=== PATIENT | male | born 1950 | race Caucasian/White ===

== ENCOUNTER → 2019-05-24 | Outpatient (CLI) | payer MEDICARE ==
--- NOTE | 2019-05-24 08:46 | MR ---
EXAMINATION TYPE: MR shoulder LT wo con DATE OF EXAM: 05/24/2019 COMPARISON: None HISTORY: Left shoulder pain TECHNIQUE: Multiplanar, multisequence imaging of the left shoulder is performed without contrast. FINDINGS: The bicipital tendon is well situated the bicipital groove however there is increased fluid surrounding the tendon compatible with tendinosis. There is narrowing of the acromioclavicular joint with hypertrophic spurring and there is also narrow ing of the glenohumeral joint. Grossly the inferior glenohumeral ligament appears intact. Small amoun t fluid is seen in the glenohumeral joint. There is fluid in the subacromial subdeltoid bursa. Mass effect from the hypertrophic change of the A C joint upon the supraspinatus tendon and muscle. There is diffuse tendinopathy of the distal suprasp inatus tendon with suspected tear involving the anterior fibers measuring approximately 1.1 x 0.9 cm compatible with a through thickness partial tear. At the insertion there appears to be ill-definition of the anterior fibers of the infraspinatus tendo n compatible with tendinopathy. Bony labrum grossly intact by non arthrogram technique. No marrow edema or contusion. IMPRESSION: 1. There is diffuse tendinopathy of the supraspinatus tendon. There is a 1.1 x 0.9 cm through thickne ss partial tear anterior fibers supraspinatus tendon with no retraction. 2. Tendinosis and partial intrasubstance tear insertion anterior fibers infraspinatus tendon. 3. Bicipital tendinosis. Intracapsular portion of the tendon demonstrates increased internal signal. Split tear within the differential diagnosis. 4. AC joint and glenohumeral arthropathy with impingement of the supraspinatus tendon and muscle. 5. Small glenohumeral joint effusion with glenohumeral joint arthropathy.
== END | disposition home or self-care (01) ==
LOC: RADMRIMAIN 07:33
PROVIDERS: ATTEND Orthopaedic Surgery
DX: M75.102 Unspecified rotator cuff tear or rupture of left shoulder, not specified as traumatic (principal); M19.012 Primary osteoarthritis, left shoulder

== ENCOUNTER → 2019-06-04 | Outpatient (CLI) | payer MEDICARE ==
[2019-06-04 10:01] LABS: Basophils # (A) 0.1 k/uL (0-0.2); Basophils % (A) 1 %; Eosinophils # (A) 0.3 k/uL (0-0.7); Eosinophils % (A) 5 %; HCT 47.5 % (39.0-53.0); HGB 15.8 gm/dL (13.0-17.5); Lymphocytes # (A) 1.6 k/uL (1.0-4.8); Lymphocytes % (A) 27 %; MCH 31.1 pg (25.0-35.0); MCHC 33.3 g/dL (31.0-37.0); MCV 93.4 fL (80.0-100.0); Mean Platelet Volume 7.5; Monocytes # (A) 0.5 k/uL (0-1.0); Monocytes % (A) 9 %; Neutrophils # (A) 3.3 k/uL (1.3-7.7); Neutrophils % (A) 55 %; Platelet Count 237 k/uL (150-450); RBC 5.08 m/uL (4.30-5.90); RDW 12.9 % (11.5-15.5); WBC 5.9 k/uL (3.8-10.6)
[2019-06-04 10:31] LABS: Potassium 4.5 mmol/L (3.5-5.1)
== END | disposition home or self-care (01) ==
LOC: LABPAT 09:23
PROVIDERS: ATTEND Orthopaedic Surgery
DX: Z01.812 Encounter for preprocedural laboratory examination (principal); Z01.818 Encounter for other preprocedural examination; M75.42 Impingement syndrome of left shoulder
CPT/HCPCS: 80051; 85025; 93005

== ENCOUNTER 2019-06-10 07:43 | Day surgery (SDC) | payer MEDICARE ==
[2019-06-09 09:54] VITALS: BMI 32.5
--- NOTE | 2019-06-09 13:42 | HP ---
HISTORY AND PHYSICAL DATE OF SURGERY: 06/10/2019 Olayinka Guadalupe is a 69-year-old patient seen with progressive left shoulder pain. We discussed treatment options. He elected to proceed with arthroscopy. Consent regarding the procedure was obtained. PAST MEDICAL HISTORY: Hypertension, hyperlipidemia. PAST SURGICAL HISTORY: None. DAILY MEDICATIONS: 1. Losartan potassium. 2. Pravastatin. ALLERGIES: None. SOCIAL HISTORY: He denies current tobacco use. PHYSICAL EXAMINATION: Physical evaluation of left shoulder: Flexion 140 degrees, abduction 120 degrees, external rotation is 25 degrees with pain and weakness. There is tenderness along the anterolateral acromion rotator cuff insertion. Impingement is positive at 30 degrees. Drop-arm sign is positive. Distal neurovascular exam is intact. Radiographs of the left shoulder revealed an acromioclavicular joint osteoarthritis and a type 2 anterior acromion. An MRI of the left shoulder revealed rotator cuff tear partial biceps tendon tear and osteoarthritic changes. IMPRESSION: 1. Left shoulder impingement with rotator cuff tear. 2. Left shoulder partial biceps tendon tear. 3. Left shoulder osteoarthritis. 4. Hypertension. 5. Hyperlipidemia. PLAN: Left shoulder arthroscopy with subacromial decompression, possible arthroscopic rotator cuff repair, probable biceps tenotomy, possible Marisela procedure and debridement. MMODL / IJN: [id number] /
[~2019-06-10 07:43] MED LIST: DEXAMETHASONE SOD PHOSPHATE 10 MG/ML 1 ML VIAL IV ONE; HYDROmorphone 0.5 MG/0.5 ML SYRINGE IVP PRN; LACTATED RINGERS 1,000 ML IV SCH; MIDAZOLAM 2 MG/2 ML VIAL IV PRN; ONDANSETRON 4 MG/2 ML VIAL IVP ONE
[2019-06-10] MEDS ORDERED: LIDOCAINE 1% 20 ML VIAL (10MG/ML) FOR IV START INTRADERMA ONE (08:20)
[2019-06-10] MEDS ORDERED: LIDOCAINE 1% INJ 10MG/ML (20 ML MDV) ONE (09:09)
[2019-06-10] MEDS ORDERED: ROPIVACAINE 5 MG/ML 30 ML VIAL ONE (09:09)
[2019-06-10] MEDS ORDERED: DEXAMETHASONE SOD PHOSPHATE 4 MG/ML 1 ML VIAL ONE (09:09)
[2019-06-10] MEDS ORDERED: MIDAZOLAM 2 MG/2 ML VIAL ONE (09:09)
[2019-06-10] MEDS ORDERED: ePHEDrine SULFATE/0.9% NACL/PF 50 MG/5 ML SYRINGE IV ONE (09:09)
[2019-06-10] MEDS ORDERED: PROPOFOL 10 MG/ML 20 ML VIAL IV ONE (09:09)
[2019-06-10] MEDS ORDERED: SUCCINYLCHOLINE CHLORIDE 100 MG/5 ML SYR IV ONE (09:09)
[2019-06-10] MEDS ORDERED: PHENYLEPHRINE-0.9% NACL SYG 1 MG/10 ML SYRINGE ONE (09:09)
[2019-06-10] MEDS ORDERED: fentaNYL (PF) 50 MCG/ML 2 ML AMP ONE (09:09)
[2019-06-10 11:44] VITALS: TEMP 97.5
--- NOTE | 2019-06-10 11:45 | P.OP ---
Date of Procedure: 06/10/19 Preoperative Diagnosis: Left shoulder impingement Postoperative Diagnosis: 1. Left shoulder rotator cuff tear 2. Left shoulder impingement 3. Left shoulder acromioclavicular joint osteoarthritis 4. Left shoulder partial long head biceps tendon tear 5. Left shoulder labral tear Procedure(s) Performed: 1. Left shoulder arthroscopic rotator cuff repair 2. Left shoulder arthroscopic subacromial decompression 3. Left shoulder arthroscopic Marisela procedure 4. Left shoulder arthroscopic biceps tenotomy 5. Left shoulder arthroscopic debridement labral tear Implants: 5Arthrex swivel lock anchors Anesthesia: GETA, regional (Interscalene block) Surgeon: Alvin Magaña Shipping [employer] Receiving Material Handler #1: Miguel Winn Estimated Blood Loss (ml): 12 Pathology: none sent Condition: stable Disposition: PACU Indications for Procedure: 69-year-old patient seen with progressive left shoulder pain. After treatment options were discussed, he elected to proceed with arthroscopy. Operative Findings: See description of procedure Description of Procedure: Patient underwent an interscalene block by department of anesthesia for postoperative pain management. The patient was then taken to the operative suite. The patient underwent a general anesthetic by the department of anesthesia. The patient was placed into a lateral position and secured. There was appropriate padding of the bony prominence. Left shoulder was then prepped and draped in normal sterile orthopedic fashion. We placed the extremity in 10 pounds of longitudinal traction. A posterior incision was now made for a posterior working portal site. The trocar and cannula were inserted into the glenohumeral joint. Arthroscopy was initiated. Spinal needle was now inserted anteriorly, to ascertain the anterior working portal site. An incision was now made in that area, a trocar was inserted followed by a probe. There was superficial tearing of the superior labrum. There was significant partial tearing long head biceps tendon. There was a large rotator cuff tear visualized from the glenohumeral joint. There were grade 1/2 chondromalacia changes of the humeral head. No osteochondral tears were present. I performed an arthroscopic biceps tenotomy. I debrided that superficial labral tear down to stable tissue. The residual labrum was stable. Instruments now removed from glenohumeral joint. Utilizing the posterior working portal site, the trocar and cannula were inserted into the subacromial space. Arthroscopy initiated. I made an incision 2 fingerbreadths lateral to the acromion. I introduced my trocar followed by my ArthroCare ablator. I now began ablating thick subacromial bursal tissue, which exposed the undersurface of the anterior acromion. There was diminished subacromial space. There was a very prominent anterior acromion. A motorized bur was introduced and a subacromial decompression was performed. I also excised some osteophytes off the inferior aspect of the distal clavicle. The AC joint was visualized and noted to be fairly arthritic. The motorized bur was introduced in the anterior portal site and a Marisela procedure was performed without difficulty, decompressing the AC joint nicely. I turned my attention to the rotator cuff. There was a 3 cm rotator cuff tear. It was freely mobile over the footprint. I debrided the margins getting down to stable tendon tissue. I introduced my motorized bur and abraded the footprint area, getting some petechial bleeding. I now made an accessory portal site off the lateral aspect of the acromion. I punched 2 holes medial for medial row fixation with the assistance of Darian FERREIRA carefully tapping the punch with a mallet as I held the punch and the camera. I now introduced both anchors into the pre-punched holes and Darian FERREIRA tapped them with the mallet as I held anchors and the camera. Darian FERREIRA now screwed the anchors in place a while I held the anchor guide and camera. All 8 limbs of suture were now passed through good bites of rotator cuff tendon. I noted a few areas where there went of the redundant tissue/dogears. I passed 4 sutures links to address that. 2 of them were centrally. I now punched 2 holes for lateral row fixation again I held the punch and camera while Darian FERREIRA used a mallet to tap in the punch. We now passed sutures to include one suture link each through both anchors and individually I introduced the anchors into the pre-punch holes I held the anchor guide in position with one hand holding the camera with the other hand while Darian FERREIRA tensioned the sutures and screwed in the anchors one at a time. All residual suture limbs were now clipped. I now punched one hole is totally to address the central dogear I had passed 2 sutures links through. I i ntroduced one additional anchor compressing the central area nicely. The suture limbs were cut. We had good compression of the tendon along the entire footprint. I injected 1 mL Renyte intra-articular. Instruments now removed from the portal sites. All portal sites were approximated with nylon suture. Sterile dressings were applied followed by a shoulder immobilizer. Miguel FERREIRA assisted in this complex case. The patient was awakened, transferred to a bed, and taken to recovery in stable condition.
[2019-06-10] MEDS ORDERED: LACTATED RINGERS 1,000 ML IV ONE ×2 (12:56)
[2019-06-10 12:59] VITALS: RESP 18
[2019-06-10 13:23] VITALS: BP 125/75; PULSE 73
--- NOTE | 2019-06-11 08:41 | P.ANPRN ---
Procedure Note - Anesthesia - Nerve Block Performed Left Interscalene Single Time Out Performed: Yes Date of Procedure: 06/10/19 Procedure Start Time: Procedure Stop Time: Location of Patient Procedure: PreOp Indication: Acute Post-Operative Pain, Requested by physician Sedation Type: Sedate with meaningful contact maintained Preparation: Sterile Prep Position: Supine Needle Types: Pajunk Needle Gauge: 21 Technique: Ultrasound (Ropivacaine 0.5%30 mL plus dexamethasone 4 mg) Blood Aspirated: No Pain Paresthesia on Injection Noted: No Resistance on Injection: Normal Events: Uneventful and Well Tolerated
== END 2019-06-10 13:54 | disposition home or self-care (01) ==
LOC: OR 07:43
PROVIDERS: ATTEND Orthopaedic Surgery
DX: M75.102 Unspecified rotator cuff tear or rupture of left shoulder, not specified as traumatic (principal); M25.812 Other specified joint disorders, left shoulder; M19.012 Primary osteoarthritis, left shoulder; S46.112A Strain of muscle, fascia and tendon of long head of biceps, left arm, initial encounter; S43.492A Other sprain of left shoulder joint, initial encounter; X58.XXXA Exposure to other specified factors, initial encounter; M25.712 Osteophyte, left shoulder; I10 Essential (primary) hypertension; E78.5 Hyperlipidemia, unspecified; Z79.82 Long term (current) use of aspirin; Z79.899 Other long term (current) drug therapy
CPT/HCPCS: 29827; 29826; 29824; 64415; C1713 ×4; C1765; J2250; J1100 ×2; J0690; J2405; J2001; J3010; J2795; J2370; J0330; J2704

== ENCOUNTER → 2023-05-20 | Outpatient (CLI) | payer MEDICARE ==
--- NOTE | 2023-05-21 08:02 | US ---
EXAMINATION TYPE: US thyroid st tissue head/neck DATE OF EXAM: 05/20/2023 COMPARISON: NONE CLINICAL INDICATION: Male, 73 years old with history of E04.1 NONTOXIC SINGLE THYROID NODULE; Thyroid nodule. GLAND SIZE: Right Lobe: 6.7 x 2.5 x 2.2 cm Overall Parenchyma: Very heterogeneous Left Lobe: 6.8 x 2.0 x 2.2 cm Overall Parenchyma: Very heterogeneous Isthmus Thickness: 0.31 cm NODULES RIGHT: # of nodules measured on right: 2 1. 2.0 X 1.5 x 1.5 cm, upper mid, Prior size: No prior TIRADS Score: 3 TIRADS Category 3: Mildly Suspicious Composition: Mixed cystic and solid (1 point). Echogenicity: Hypoechoic (2 points). Shape: Wider than tall (0 points). Margin: Smooth (0 points). Echogenic foci: None or large comet-tail artifacts (0 points) Recommendation: If >2.5cm: FNA; If >1.5cm: Follow up at 1,3,5 years 2. 0.9 X 0.7 x 0.7 cm, upper medial, Prior size: No prior TIRADS Score: 4 TIRADS Category 4: Moderately Suspicious Composition: Solid or almost completely solid (2 points). Echogenicity: Hypoechoic (2 points). Shape: Wider than tall (0 points). Margin: Smooth (0 points). Echogenic foci: None or large comet-tail artifacts (0 points) Recommendation: If >1.5cm: FNA; If >1cm: Follow up at 1,2, 3,5 years LEFT: # of nodules measured on left: 1 1. 0.8 X 0.8 x 0.8 cm, mid mid, Prior size: No prior lesion is thought to be a hypoechoic given very little posterior acoustic enhancement. Attention on follow-up imaging. TIRADS Score: 4 TIRADS Category 4: Moderately Suspicious Composition: Solid or almost completely solid (2 points). Echogenicity: Hypoechoic (2 points). Shape: Wider than tall (0 points). Margin: Smooth (0 points). Echogenic foci: None or large comet-tail artifacts (0 points) Recommendation: If >1.5cm: FNA; If >1cm: Follow up at 1,2, 3,5 years ISTHMUS: # of nodules measured in the isthmus: 0 Bilateral neck scanned, no evidence of lymphadenopathy. IMPRESSION: Thyroid nodules that meet criteria for follow-up.
== END | disposition home or self-care (01) ==
LOC: RADUSWWP 17:02
PROVIDERS: ATTEND Internal Medicine
DX: E04.2 Nontoxic multinodular goiter (principal)
CPT/HCPCS: 76536

== ENCOUNTER 2023-06-24 08:49 | Day surgery (SDC) | payer MEDICARE ==
[2023-06-24 10:02] VITALS: BP 142/71; PULSE 66; RESP 18
[2023-06-24 10:17] VITALS: TEMP 97.7
--- NOTE | 2023-06-24 11:13 | US ---
ULTRASOUND GUIDED FNA THYROID BIOPSY: CLINICAL HISTORY: Right thyroid nodule FINDINGS: The procedure was explained to the patient. The risks, complications, benefits and alternatives were discussed and any questions were answered. Informed consent was obtained. Patient was placed supin e on the ultrasound table and prepped and draped in the usual sterile fashion. Utilizing a 25 gauge needle, five passes were made into the requested right thyroid nodule. Patient was stable throughout the procedure. Pathology is pending. All elements of maximal barrier technique were utilized. IMPRESSION: 1. Successful ultrasound guided FNA thyroid biopsy.
== END 2023-06-24 10:05 | disposition home or self-care (01) ==
LOC: RADPROMAIN 08:49
PROVIDERS: ATTEND Internal Medicine
DX: E04.1 Nontoxic single thyroid nodule (principal)
CPT/HCPCS: 10005; 88173; 88305

== ENCOUNTER → 2023-07-11 | Outpatient (CLI) | payer MEDICARE ==
[2023-07-11 10:50] LABS: African American GFR (CKD) 59 (>60 ml/min/1.73 sqM); Blood Urea Nitrogen 20 mg/dL (9-20); Non-African American GFR(CKD) 51 (>60 ml/min/1.73 sqM)
--- NOTE | 2023-07-11 13:16 | CT ---
EXAMINATION TYPE: CT chest w con DATE OF EXAM: 07/11/2023 COMPARISON: 12/26/2022 HISTORY: 73-year-old male R91.1, Solitary pulmonary nodule TECHNIQUE: Contiguous axial scanning of the chest after the administration of 80 mL of Isovue 300. C oronal/sagittal reconstructions performed. CT DLP: 468.30mGycm. Automatic exposure control utilized for a dose reduction. FINDINGS: The heart is normal size without pericardial effusion. Moderate aortic valvular calcifications. Scatt ered LCA, LAD, and circumflex coronary artery calcifications. Mild atherosclerotic arch calcifications within the charge was a branching anatomy. Tiny 6 mm hypodense nodule left lobe of the thyroid gland. Borderline caliber to the main right and left pulmonary arteries up to 2.6 cm. This may reflect under lying pulmonary hypertension. No consolidation or pleural effusion. A couple subpleural lingular nodules up to 6 mm remain unchange d. Visualized upper abdomen demonstrate some fatty infiltration of the liver. Bones: Anterior endplate spondylosis mid to lower thoracic spine. IMPRESSION: 1. The subpleural lingular pulmonary nodules measuring up to 6 mm remain unchanged for 6 months. A be nign etiology is suspected. Consider an additional one-year surveillance follow-up. 2. Scattered LCA, LAD, and circumflex coronary artery calcifications. 3. Possible underlying pulmonary arterial hypertension.
== END | disposition home or self-care (01) ==
LOC: RADCTMAIN 10:08
PROVIDERS: ATTEND Internal Medicine
DX: I25.10 Atherosclerotic heart disease of native coronary artery without angina pectoris (principal); R91.8 Other nonspecific abnormal finding of lung field
CPT/HCPCS: 82565; 84520; 71260; 36415; Q9967

== ENCOUNTER 2023-07-29 11:24 | Day surgery (SDC) | payer MEDICARE ==
[2023-07-29 11:57] VITALS: TEMP 97.8
[2023-07-29] MEDS ORDERED: PROPOFOL 10 MG/ML 20 ML VIAL IV ONE (12:02)
[2023-07-29] MEDS ORDERED: LIDOCAINE 2% INJ 20 MG/ML (2 ML VIAL) ONE (12:02)
[2023-07-29] MEDS: LACTATED RINGERS 1,000 ML IV SCH ×2 (12:04→12:22)
--- NOTE | 2023-07-29 12:06 | P.GSHP ---
History of Present Illness H&P Date: 07/29/23 Chief Complaint: colon cancer screening 73-year-old male here for colonoscopy. Patient's last colonoscopy approximately 15 years ago. Says he had a small polyp. No family history of colon cancer. Parents is occasional constipation. No rectal bleeding. Past Medical History Past Medical History: Hyperlipidemia, Hypertension Additional Past Medical History / Comment(s): WEIGHT LOSS MEDS History of Any Multi-Drug Resistant Organisms: None Reported Past Surgical History: Orthopedic Surgery Additional Past Surgical History / Comment(s): LEFT ROTATOR CUFF Past Anesthesia/Blood Transfusion Reactions: No Reported Reaction Past Psychological History: No Psychological Hx Reported Smoking Status: Former smoker Past Alcohol Use History: Occasional Additional Past Alcohol Use History / Comment(s): AGES [age] SMOKED 2.5 PPD. Past Drug Use History: None Reported - Past Family History Father Family Medical History: Cancer Additional Family Medical History / Comment(s): Pancreatic Cancer Medications and Allergies Home Medications Medication Instructions Recorded Confirmed Type Aspirin [Adult Low Dose Aspirin EC] 81 mg PO QAM 06/09/19 07/28/23 History Losartan/Hydrochlorothiazide 1 tab PO QAM 06/09/19 07/29/23 History [Losartan-Hctz 100-25 mg Tab] Multivitamins, Thera [Multivitamin 1 tab PO DAILY 06/09/19 07/28/23 History (formulary)] Cholecalciferol (Vitamin D3) 1,250 mcg PO DAILY 06/19/23 07/28/23 History [Vitamin D3] Phentermine HCl [Adipex P] 15 mg PO QAM 06/19/23 07/29/23 History Rosuvastatin [Crestor] 10 mg PO QAM 06/19/23 07/28/23 History amLODIPine [Norvasc] 10 mg PO QAM 06/19/23 07/28/23 History Allergies Allergy/AdvReac Type Severity Reaction Status Date / Time No Known Allergies Allergy Verified 07/29/23 11:36 Surgical - Exam Vital Signs Temp Pulse Resp BP Pulse Ox 97.8 F 85 16 146/67 95 07/29/23 11:45 07/29/23 11:45 07/29/23 11:45 07/29/23 11:45 07/29/23 11:45 Physical exam: General: Well-developed, well-nourished HEENT: Normocephalic, sclerae nonicteric Abdomen: Nontender, nondistended Extremities: No edema Neuro: Alert and oriented Assessment and Plan (1) Colon cancer screening Narrative/Plan: Will proceed with colonoscopy at this time. Current Visit: Yes Status: Acute Code(s): Z12.11 - SNOMED Code(s): 820241870
--- NOTE | 2023-07-29 12:24 | P.PCN ---
Date of Procedure: 07/29/23 Procedure(s) Performed: PREOPERATIVE DIAGNOSIS: Colon cancer screening POSTOPERATIVE DIAGNOSIS: Mild diverticulosis PROCEDURE: Colonoscopy ANESTHESIA: MAC SURGEON: Luke Pedroza M.D. SPECIMENS: None ENDOSCOPIC PROCEDURE: The patient was placed on the endoscopy table in the left decubitus position. The Olympus colonoscope was inserted into the anus and passed under direct visualization to the base of the cecum. The appendiceal orifice was visualized. From that point the scope was slowly withdrawn inspecting all surfaces carefully. There were no neoplastic inflammatory or polypoid lesions throughout the cecum, ascending, transverse, descending, sigmoid and rectum. There was mild left-sided diverticulosis noted. Digital rectal examination was normal. The patient was taken to the recovery room in stable condition per anesthesia guidelines. RECOMMENDATIONS: Resume diet. Increased stool softeners.
[2023-07-29 12:47] VITALS: BP 150/90; PULSE 85; RESP 18
== END 2023-07-29 13:02 | disposition home or self-care (01) ==
LOC: ORWHC2ENDO 11:24
PROVIDERS: ATTEND Surgery
DX: Z12.11 Encounter for screening for malignant neoplasm of colon (principal); K57.30 Diverticulosis of large intestine without perforation or abscess without bleeding; E78.5 Hyperlipidemia, unspecified; I10 Essential (primary) hypertension; F10.90 Alcohol use, unspecified, uncomplicated; Z79.82 Long term (current) use of aspirin; Z87.891 Personal history of nicotine dependence; Z79.899 Other long term (current) drug therapy; Z80.0 Family history of malignant neoplasm of digestive organs
CPT/HCPCS: J2704; J2001; G0121

== ENCOUNTER → 2024-03-29 | Outpatient (CLI) | payer MEDICARE ==
--- NOTE | 2024-03-29 09:59 | CT ---
EXAMINATION TYPE: CT chest wo con DATE OF EXAM: 03/29/2024 COMPARISON: 07/11/2023, 12/26/2022 HISTORY: 73-year-old male R91.1, LT upper lobe pulmonary nodule TECHNIQUE: Contiguous axial scanning of the chest without IV contrast. Coronal/sagittal reconstructio ns performed. CT DLP: 708mGycm. Automatic exposure control utilized for a dose reduction. FINDINGS: The heart is normal size without pericardial effusion. Bugi-zi-xpiudliy LAD coronary artery calcifica tions are present. Moderate aortic valvular calcifications. Aorta normal caliber with mild atherosclerotic arch calcifications and conventional arch vessel branc catracho anatomy. No thoracic lymphadenopathy by CT size criteria. Mild diffuse bronchial wall thickening. There is a stable 7 mm subpleural pulmonary nodule and adjacent punctate 3 mm subpleural pulmonary no dule within the inferior lingula. Findings unchanged compared to 12/26/2022. No new pulmonary nodule. N o consolidation or pleural effusion seen. Visualized upper abdomen shows mild fatty infiltration of the liver. Bones: Accentuated lower thoracic kyphosis with anterior endplate spondylosis. IMPRESSION: 1. A couple stable subpleural pulmonary nodules in the inferior lingula measuring up to 7 mm, unchang ed for 1 year 3 months. An additional one-year follow-up can demonstrate over 2 years of stability an d further support a benign etiology. 2. Moderate aortic valvular calcifications.
== END | disposition home or self-care (01) ==
LOC: RADCTMAIN 09:29
PROVIDERS: ATTEND Internal Medicine
DX: R91.8 Other nonspecific abnormal finding of lung field (principal); I70.0 Atherosclerosis of aorta
CPT/HCPCS: 71250

== ENCOUNTER → 2024-06-25 | Outpatient (CLI) | payer MEDICARE ==
--- NOTE | 2024-06-25 15:47 | US ---
EXAMINATION TYPE: US kidneys/renal and bladder DATE OF EXAM: 06/25/2024 COMPARISON: NONE CLINICAL INDICATION: Male, 74 years old with history of N18.31 STAGE 3 CHR KIDNEY DISEASE; EXAM MEASUREMENTS: Right Kidney: 11.3 x 6.6 x 6.4 cm Left Kidney: 10.2 x 5.0 x 5.0 cm Boat Crew Deck Hand notes:Difficult and limited study due to patient body habitus Right Kidney: no hydronephrosis or masses seen Left Kidney: no hydronephrosis or masses seen Bladder: No gross abnormality. Bilateral Jets seen: yes IMPRESSION: Exam limitations due to patient body habitus. No hydronephrosis.
--- NOTE | 2024-06-26 12:22 | CA ---
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 18 - 58 / 22 - 52 cm??? LA Volume Index 25.2 cm???/m??? 16 - 28 cm???/m??? M-MODE Aortic Root Diameter MM 3.2 cm LA Systolic Diameter MM 4.5 cm LA Ao Ratio MM 1.4 AV Cusp Separation MM 1.5 cm DOPPLER AV Peak Velocity 223.7 cm/s AV Peak Gradient 20.0 mmHg AV Mean Velocity 160.0 cm/s AV Mean Gradient 11.2 mmHg AV Velocity Time Integral 46.3 cm LVOT Peak Velocity 98.0 cm/s LVOT Peak Gradient 3.8 mmHg LVOT Velocity Time Integral 17.7 cm MV Area PHT 2.7 cm??? Mitral E Point Velocity 50.5 cm/s Mitral A Point Velocity 68.4 cm/s Mitral E to A Ratio 0.7 MV Deceleration Time 279.9 ms MV E' Velocity 6.5 cm/s Mitral E to MV E' Ratio 7.8 TR Peak Velocity 219.5 cm/s TR Peak Gradient 19.3 mmHg Right Ventricular Systolic Press 24.0 mmHg FINDINGS Left Ventricle Moderately increased left ventricular wall thickness. Left ventricular cavity size normal. Normal left ventricular systolic function with no obvious regional wall motion abnormalities. Left ventricular ejection fraction is estimated at 55-60 %. Grade 1 diastolic dysfunction. Right Ventricle Right ventricular dilatation. Right ventricular systolic pressure within normal limits. Right Atrium Mild right atrial dilatation. Left Atrium Mildly increased left atrial volume. Mildly increased left atrial area. Mitral Valve Structurally normal mitral valve. Mitral valve thickened. Mild mitral annular calcification. Mild mitral regurgitation. Aortic Valve Trileaflet aortic valve. Mild aortic stenosis with a peak gradient of 20 mmHg and a mean gradient of 11 mmHg. Heavily calcified aortic valve. No aortic regurgitation. Tricuspid Valve Structurally normal tricuspid valve. Mild tricuspid regurgitation. Pulmonic Valve Structurally normal pulmonic valve. Pericardium No pericardial effusion. Aorta Normal size aortic root and proximal ascending aorta. CONCLUSIONS Left ventricular ejection fraction 55-60% Moderately increased left ventricular wall thickness Mildly dilated left atrium Mild mitral regurgitation Mild aortic stenosis Previewed by: Dr. Adrian Raphael DO (Electronically Signed) Final Date: 26 June 2024 12:21
== END | disposition home or self-care (01) ==
LOC: RADUSWWP 14:54
PROVIDERS: ATTEND Internal Medicine
DX: N18.31 Chronic kidney disease, stage 3a (principal); I08.0 Rheumatic disorders of both mitral and aortic valves
CPT/HCPCS: 76770; 93306

== ENCOUNTER 2024-08-05 07:14 | Emergency (ER) | payer OTHER, MEDICARE ==
--- NOTE | 2024-08-05 08:41 | XR ---
EXAMINATION TYPE: XR hand complete LT DATE OF EXAM: 08/05/2024 CLINICAL HISTORY: pain TECHNIQUE: Frontal, lateral and oblique images of the left hand are obtained. COMPARISON: None. FINDINGS: There is no acute fracture/dislocation evident. The joint spaces appear within normal limi ts. The overlying soft tissue appears unremarkable. IMPRESSION: There is no acute fracture or dislocation. ICD 10 NO FRACTURE, INITIAL EVALUATION [facility], , 08/05/2024 8:39 AM
[2024-08-05] MEDS: BACITRACIN OINT 1 EACH PACKET TOPICAL ONE (08:56)
--- NOTE | 2024-08-05 09:20 | XR ---
EXAMINATION TYPE: XR hand limited LT DATE OF EXAM: 08/05/2024 CLINICAL HISTORY: pain TECHNIQUE: Frontal, lateral and oblique images of the left hand are obtained. COMPARISON: None. FINDINGS: There is no acute fracture/dislocation evident. The joint spaces appear within normal limi ts. The overlying soft tissue appears unremarkable. IMPRESSION: There is no acute fracture or dislocation. ICD 10 NO FRACTURE, INITIAL EVALUATION [facility], , 08/05/2024 9:18 AM
--- NOTE | 2024-08-05 09:23 | ED ---
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 States he was at work and tripped. He fell onto concrete. Patient sustained an abrasion to the left forehead. Denies losing consciousness. Denies headache or visual changes. No neck or back pain. Is not taking blood thinner. He is most concerned about his left pinky finger. He used his hand to catch himself and now he has obvious deformity to the left fifth digit. He is right-hand dominant. He is not taking. No other alleviating, precipitating or modifying factors - Related Data Home Medications Medication Instructions Recorded Confirmed Aspirin [Adult Low Dose Aspirin EC] 81 mg PO QAM 06/09/19 07/28/23 Losartan/Hydrochlorothiazide 1 tab PO QAM 06/09/19 07/29/23 [Losartan-Hctz 100-25 mg Tab] Multivitamins, Thera [Multivitamin 1 tab PO DAILY 06/09/19 07/28/23 (formulary)] Cholecalciferol (Vitamin D3) 1,250 mcg PO DAILY 06/19/23 07/28/23 [Vitamin D3] Phentermine HCl [Adipex P] 15 mg PO QAM 06/19/23 07/29/23 Rosuvastatin [Crestor] 10 mg PO QAM 06/19/23 07/28/23 amLODIPine [Norvasc] 10 mg PO QAM 06/19/23 07/28/23 Allergies Allergy/AdvReac Type Severity Reaction Status Date / Time No Known Allergies Allergy Verified 07/29/23 11:36 Review of Systems ROS Statement: Those systems with pertinent positive or pertinent negative responses have been documented in the HPI. ROS Other: All systems not noted in ROS Statement are negative. Past Medical History Past Medical History: Hyperlipidemia, Hypertension Additional Past Medical History / Comment(s): WEIGHT LOSS MEDS History of Any Multi-Drug Resistant Organisms: None Reported Past Surgical History: Orthopedic Surgery Additional Past Surgical History / Comment(s): LEFT ROTATOR CUFF Past Anesthesia/Blood Transfusion Reactions: No Reported Reaction Past Psychological History: No Psychological Hx Reported Smoking Status: Former smoker Past Alcohol Use History: Occasional Past Drug Use History: None Reported - Past Family History Father Family Medical History: Cancer Additional Family Medical History / Comment(s): Pancreatic Cancer General Exam Limitations: no limitations General appearance: alert, in no apparent distress Head exam: Present: normocephalic, other (Abrasion to the left forehead) Eye exam: Present: normal appearance, PERRL, EOMI. Absent: scleral icterus, conjunctival injection, periorbital swelling ENT exam: Present: normal exam, mucous membranes moist Neck exam: Present: normal inspection. Absent: tenderness, meningismus, lymphadenopathy Respiratory exam: Present: normal lung sounds bilaterally. Absent: respiratory distress, wheezes, rales, rhonchi, stridor Cardiovascular Exam: Present: regular rate, normal rhythm, normal heart sounds. Absent: systolic murmur, diastolic murmur, rubs, gallop, clicks GI/Abdominal exam: Present: soft, normal bowel sounds. Absent: distended, tenderness, guarding, rebound, rigid Extremities exam: Present: full ROM, tenderness (And obvious deformity to the left fifth digit. Dislocation obvious at the PIP with a mild abrasion noted at the distal interphalangeal joint. Does not communicate and therefore no concern for open fracture), normal capillary refill. Absent: pedal edema, joint swelling, calf tenderness Back exam: Present: normal inspection Neurological exam: Present: alert, oriented X3, CN II-XII intact Psychiatric exam: Present: normal affect, normal mood Skin exam: Present: warm, dry, intact, normal color. Absent: rash Course Vital Signs 08/05/24 08/05/24 08/05/24 07:37 07:43 08:57 Temperature 97.9 F Pulse Rate 74 69 60 Respiratory 18 16 19 Rate Blood Pressure 144/73 153/82 183/64 O2 Sat by Pulse 96 98 99 Oximetry 08/05/24 09:55 Temperature 98.0 F Pulse Rate 83 Respiratory 17 Rate Blood Pressure 148/82 O2 Sat by Pulse 96 Oximetry Procedures - Orthopedic Joint Reduction Joint #1 Consent Obtained: verbal consent Side: left Joint Reduction Location: finger Technique Used: traction/counter-traction, direct manipulation Post-Reduction Neuro Exam: intact Post-Reduction Vascular Exam: intact Post Reduction X-Ray Obtained: Yes Post Reduction X-Ray Results: reduced Splint Applied: Yes Patient Tolerated Procedure: well, no complications Medical Decision Making - Medical Decision Making Was pt. sent in by a medical professional or institution (HANNA Sotomayor, DRYING MACHINE RECEIVER, urgent care, hospital, or [facility]...) When possible be specific @ -No Did you speak to anyone other than the patient for history (EMS, parent, family, police, friend...)? What history was obtained from this source @ -No Did you review nursing and triage notes (agree or disagree)? Why? @ -I reviewed and agree with nursing and triage notes Were old charts reviewed (outside hosp., previous admission, EMS record, old EKG, old radiological studies, urgent care reports/EKG's, [facility] records)? Report findings @ -No old charts were reviewed Differential Diagnosis (chest pain, altered mental status, abdominal pain women, abdominal pain men, vaginal bleeding, weakness, fever, dyspnea, syncope, headache, dizziness, GI bleed, back pain, seizure, CVA, palpatations, mental health, musculoskeletal)? @ -Differential Musculoskeletal Muscular strain, contusion, ligament sprain, fracture, arthritis, septic arthritis, bursitis, cellulitis, muscle spasm, nerve compression, DVT, arterial occlusion, herpes zoster, electrolyte abnormality, tumor.... This is not meant to be in all inclusive list EKG interpreted by me (3pts min.). @ -Not done X-rays interpreted by me (1pt min.). @ -Due to positioning the obvious dislocation is not evident on the lateral film. CT interpreted by me (1pt min.). @ -None done U/S interpreted by me (1pt. min.). @ -None done What testing was considered but not performed or refused? (CT, X-rays, U/S, labs)? Why? @ -None What meds were considered but not given or refused? Why? @ -None Did you discuss the management of the patient with other professionals (professionals i.e. HANNA Sotomayor, DRYING MACHINE RECEIVER, lab, RT, psych nurse, nursing home social worker, fur feeder, teacher, chief creative officer, casework specialist)? Give summary @ -No Was smoking cessation discussed for >3mins.? @ -No Was critical care preformed (if so, how long)? @ -No Were there social determinants of health that impacted care today? How? (Homelessness, low income, unemployed, alcoholism, drug addiction, transportation, low edu. Level, literacy, decrease access to med. care, snf, rehab)? @ -No Was there de-escalation of care discussed even if they declined (Discuss DNR or withdrawal of care, Hospice)? DNR status @ -No What co-morbidities impacted this encounter? (DM, HTN, Smoking, COPD, CAD, Cancer, CVA, ARF, Chemo, Hep., AIDS, mental health diagnosis, sleep apnea, morbid obesity)? @ -None Was patient admitted / discharged? Hospital course, mention meds given and route, prescriptions, significant lab abnormalities, going to OR and other pertinent info. @ -Upon arrival patient seen and evaluated in room 15. Thorough history and physical exam was performed. Patient did hit his head but has no neurologic s ymptoms and therefore CT is withheld at this time. Patient does have obvious deformity of his fifth finger on the left hand. X-ray was performed however patient cannot obtain the appropriate positioning to really identify dislocation. I did reduce the finger. Patient reports to immediate relief of pain and has increased range of motion. I did repeat an x-ray. Results are discussed with patient. He is stable for discharge home at this time. Instructed follow-up with his doctor and return for any new or worsening symptoms. He is provided a baseball splint to take home Undiagnosed new problem with uncertain prognosis? @ -No Drug Therapy requiring intensive monitoring for toxicity (Heparin, Nitro, Insulin, Cardizem)? @ -No Were any procedures done? @ -No Diagnosis/symptom? @ -Acute fall, blunt head trauma, left forehead abrasion, left fifth digit PIP dislocation Acute, or Chronic, or Acute on Chronic? @ -Acute Uncomplicated (without systemic symptoms) or Complicated (systemic symptoms)? @ -Complicated Side effects of treatment? @ -No Exacerbation, Progression, or Severe Exacerbation? @ -No Poses a threat to life or bodily function? How? (Chest pain, USA, ID, pneumonia, PE, COPD, DKA, ARF, appy, cholecystitis, CVA, Diverticulitis, Homicidal, Suicidal, threat to staff... and all critical care pts) @ -No Disposition Clinical Impression: Fall, Dislocation of finger, left, closed, Blunt head injury, Abrasion head Disposition: HOME SELF-CARE Condition: Stable Instructions (If sedation given, give patient instructions): Head Injury (DC), Finger Dislocation (ED) Additional Instructions: Please take Tylenol for pain. Wear the splint. Follow-up with your doctor and return for any new or worsening symptoms Is patient prescribed a controlled substance at d/c from ED?: No Referrals: Emmie Sahni MD [Primary Care Provider] - 1-2 days Time of Disposition: 09:23
[2024-08-05 09:58] VITALS: BP 148/82; PULSE 83; RESP 17; TEMP 98
== END 2024-08-05 09:58 | disposition home or self-care (01) ==
LOC: EC 07:14
CPT/HCPCS: 26770; 99283